=== PATIENT | female | born 1970 | race Caucasian/White ===

== ENCOUNTER → 2017-01-19 | Outpatient (CLI) | payer BC ==
[~2017-01-19] MED LIST: BACTRIM,SEPT1 TABLET PO; LEVO-T75 MCG PO; ZOLOFT50 MG PO
== END | disposition home or self-care (01) ==
LOC: CDC 09:09
DX: Z01.810 Encounter for preprocedural cardiovascular examination (principal); N84.0 Polyp of corpus uteri; N92.0 Excessive and frequent menstruation with regular cycle
CPT/HCPCS: 93000

== ENCOUNTER 2017-01-25 07:44 | Day surgery (SDC) | payer BC ==
[~2017-01-25] VITALS: Ht 160 cm; Wt 58.1 kg
[2017-01-25 08:20] VITALS: BP 104/65
[2017-01-25 11:20] VITALS: BP 106/58
[2017-01-25 12:06] VITALS: BP 96/60
== END 2017-01-25 12:10 | disposition home or self-care (01) ==
LOC: SDC
DX: N92.1 Excessive and frequent menstruation with irregular cycle (principal); N84.0 Polyp of corpus uteri; N94.10 Unspecified dyspareunia; E03.9 Hypothyroidism, unspecified; Z83.49 Family history of other endocrine, nutritional and metabolic diseases; Z83.3 Family history of diabetes mellitus; Z88.0 Allergy status to penicillin; Z88.1 Allergy status to other antibiotic agents
CPT/HCPCS: 88305; J0131; J0690; J1100; J1885; J2250; J2405; J2765; J3010